=== PATIENT | male | born 1970 | race Caucasian/White ===

== ENCOUNTER 2017-09-20 16:09 | Emergency (ER) | payer MEDICAID ==
[2017-09-20 16:34] LABS: AMPHETAMINES NEGATIVE (NEGATIVE); METHADONE NEGATIVE (NEGATIVE); OPIATES(OP13) NEGATIVE (NEGATIVE); OXYCODONE(OXY) NEGATIVE (NEGATIVE); PROPOXYPHENE(PPX) NEGATIVE (NEGATIVE); TRICYCLIC ANTIDEPRESSANTS NEGATIVE (NEGATIVE)
[2017-09-20] MEDS ORDERED: NITROGLYCERIN 0.4 MG TAB SL PRN (16:37)
[2017-09-20 16:56] LABS: BASOPHILS % (AUTO) 1 % (0-3); EOSINOPHILS % (AUTO) 3 % (0-9); HEMATOCRIT 38 % (39-53); MEAN CORPUSCULAR HGB CONC 34.3 gm/dl (32.0-36.0); MEAN CORPUSCULAR VOLUME 92 fL (80-100); MONOCYTES % (AUTO) 9.4 % (0-12); NEUTROPHILS % (AUTO) 66.1 % (37-80)
[2017-09-20] MEDS ORDERED: THIAMINE 100 MG TAB PO ONE (17:06)
[2017-09-20] MEDS ORDERED: FOLIC ACID 1 MG TAB PO ONE (17:06)
[2017-09-20] MEDS ORDERED: THIAMINE 100 MG TAB ONE (17:10)
[2017-09-20] MEDS ORDERED: FOLIC ACID 1 MG TAB ONE (17:10)
[2017-09-20 17:11] LABS: CALCIUM 8.2 mg/dl (8.5-10.1); GLOM FILT RATE 66 mL/min (>60); POTASSIUM 3.8 mMol/L (3.5-5.1); SODIUM 141 mMol/L (136-145)
[2017-09-20 17:24] VITALS: TEMP 97.6
[2017-09-20] MEDS ORDERED: CLONIDINE 0.1 MG TAB PO ONE (17:28)
[2017-09-20] MEDS ORDERED: CLONIDINE 0.1 MG TAB ONE (17:30)
[2017-09-20 18:21] VITALS: BP 137/102; PULSE 91; RESP 22; O2SAT 98
== END 2017-09-20 18:45 | DRG 897 ==
LOC: ED 16:09
DX: F19.20 Other psychoactive substance dependence, uncomplicated (principal); R07.9 Chest pain, unspecified; I10 Essential (primary) hypertension
CPT/HCPCS: 36415; 71045; 80048; 80305; 82550; 84484; 85025; 85610; 85730; 93005; 99283; 99284